=== PATIENT | male | born 1965 | race Two or more races ===

== ENCOUNTER 2018-10-24 15:32 | Emergency (ER) | payer MEDICARE ==
[~2018-10-24] VITALS: Ht 157.5 cm; Wt 95.3 kg
[2018-10-24 15:32] VITALS: BP 101/47
[2018-10-24] MEDS ORDERED: ASPIRIN81 MG ORAL (15:57)
[2018-10-24] MEDS ORDERED: GABAPENTIN300 MG ORAL (15:57)
[2018-10-24] MEDS ORDERED: BENADRYL25 MG ORAL (15:57)
[2018-10-24] MEDS ORDERED: METFORMIN HCL500 M1 ORAL (15:57)
[2018-10-24] MEDS ORDERED: NORCO 10-325 T1 EACH ORAL (15:57)
[2018-10-24] MEDS ORDERED: ACETAMINOP160 MG/54 ORAL (15:57)
[2018-10-24] MEDS ORDERED: XANAX0.5 MG ORAL (15:57)
[2018-10-24] MEDS ORDERED: ATORVASTATIN CA40 MG ORAL (15:57)
[2018-10-24] MEDS ORDERED: LORATADINE10 M1 PO (15:57)
[2018-10-24] MEDS ORDERED: LISINOPRIL5 MG ORAL (15:57)
[2018-10-24] MEDS ORDERED: ZOFRAN ODT8 MG ORAL (15:57)
[2018-10-24] MEDS ORDERED: SERTRALINE HCL25 MG ORAL (15:57)
[2018-10-24] MEDS ORDERED: MIRALAX17 G2 ORAL (15:57)
[2018-10-24] MEDS ORDERED: Ketorolac 30mg Inj IM ONE (16:15)
--- NOTE | 2018-10-24 17:48 | Emergency Room Report ---
History of Present Illness General Chief Complaint: Pain Source: EMS Present Illness HPI 53-year-old male with history of hypertension and depression, who just had a PICC line removed because of right arm, complains of pain in the right forearm as well as swelling in the left hand and numbness of left arm, has been taking [place] 10 with some improvement. Complains of pain radiation to the left shoulder, rating the pain 10 out of, denies tingling patient has full range of motion however is unable to feel right thumb. he denies chest pain, shortness of breath, palpitations, abdominal pain, dizziness. He reports he noticed a little bit of cyanosis and has a right thumb 2 days ago however nonexistent at this moment Allergies: Coded Allergies: IODINE (Verified Allergy, Unknown, 10/24/18) MEPERIDINE (Verified Allergy, Unknown, 10/24/18) PROMETHAZINE (Verified Allergy, Unknown, 10/24/18) Patient History Past Medical History: see triage record Past Surgical History: unable to obtain Pertinent Family History: none Immunizations: UTD Reviewed Nursing Documentation: PMH: Agreed; PSxH: Agreed Nursing Documentation-PMH Past Medical History: No History, Except For Hx Hypertension: Yes History Of Psychiatric Problem: Yes - ptsd, anxiety Review of Systems All Other Systems: negative except mentioned in HPI Physical Exam Vital Signs Date Time Temp Pulse Resp B/P (MAP) Pulse Ox O2 Delivery O2 Flow Rate FiO2 10/24/18 15:25 98.4 68 17 101/47 92 Room Air Sp02 EP Interpretation: reviewed, normal General Appearance: normal inspection, well appearing, no apparent distress, alert, GCS 15 Head: normocephalic, atraumatic Eyes: bilateral eye normal inspection, bilateral eye PERRL ENT: normal ENT inspection, normal pharynx Neck: normal inspection, supple Respiratory: normal inspection, normal breath sounds, no retraction, no wheezing Cardiovascular #1: normal inspection, no edema, no murmur, normal capillary refill Cardiovascular #2: 2+ radial (R), 2+ radial (L) Gastrointestinal: normal inspection, soft Rectal: deferred Genitourinary: deferred Musculoskeletal: back normal, digits/nails normal, gait/station normal, swelling - right hand Neurologic: normal inspection, alert, oriented x3, responsive Medical Decision Making PA Attestation all diagnosis and treatment plans were reviewed and discussed with supervising physician Dr. Gill Diagnostic Impression: Primary Impression: Edema of right forearm Additional Impression: Radial nerve palsy ER Course 53-year-old male with history of hypertension and depression, who just had a PICC line removed because of right arm, complains of pain in the right forearm as well as swelling in the left hand and numbness of left arm, has been taking [place] 10 with some improvement. Complains of pain radiation to the left shoulder, rating the pain 10 out of, denies tingling patient has full range of motion however is unable to feel right thumb. he denies chest pain, shortness of breath, palpitations, abdominal pain, dizziness. He reports he noticed a little bit of cyanosis and has a right thumb 2 days ago however nonexistent at this moment Ddx considered but are not limited to venous insufficiency, arterial insufficiency, edema post removal of PICC line Vital signs: are WNL, pt. is afebrile H&PE are most consistent with edema right forearm ORDERS: arterial and venous ultrasound of the right upper extremity, Toradol 30 g IM, naproxen 500mg ED INTERVENTIONS: Toradol 30 IM DISCHARGE: At this time pt. is stable for d/c to home. Will provide printed patient care instructions, and any necessary prescriptions. Care plan and follow up instructions have been discussed with the patient prior to discharge. K to take naproxen 500 mg twice a day make sure blood pressure is controlled do not take at the same time with norco CT/MRI/US Diagnostic Results CT/MRI/US Diagnostic Results : Imaging Test Ordered: venous and arterial US left Upper extremitity Impression US VENOUS RIGHT UPPER EXTREMITY: No evidence of deep venous thrombosis. Venous flow signal identified in the imaged internal jugular and subclavian veins. US ARTERIAL RIGHT UPPER EXTREMITY: Arterial flow signal identified throughout the right upper extremity. No evidence of any significant stenosis or major arterial occlusion. Last Vital Signs Date Time Temp Pulse Resp B/P (MAP) Pulse Ox O2 Delivery O2 Flow Rate FiO2 10/24/18 15:32 98.4 17 101/47 92 Room Air 10/24/18 15:25 68 Disposition: HOME, SELF-CARE Condition: Stable Scripts Naproxen* (NAPROXEN*) 500 Mg Tablet 500 MG ORAL TWICE A DAY, #30 TAB Prov: Sia Soliman 10/24/18 Patient Instructions: Edema, [id number], Radial Nerve Palsy Additional Instructions: follow with the primary care provider in specialist if pain continues at this time no arterial or venous insufficiency further assessment nerves may be done via MRI upon request a primary care provider Sai Soliman Oct 24, 2018 17:48
[2018-10-24] MEDS ORDERED: NAPROXEN500 M2 ORAL (17:58)
[2018-10-24 18:24] VITALS: BP 115/56
[2018-10-24 21:04] VITALS: BP 112/70
--- NOTE | 2018-10-25 09:24 | Diagnostic Imaging Report ---
Indication: Right upper extremities pain and swelling Technique: Grayscale duplex images of the right upper extremity veins Comparison: none Findings: No intraluminal thrombus is demonstrated. Normal compressibility. Normal phasic waveforms Impression: Negative for evidence of upper extremity venous thrombosis
--- NOTE | 2018-10-25 09:28 | Diagnostic Imaging Report ---
Indication: Right upper extremity pain Technique: Grayscale duplex images of the right extremity extremity arteries Comparison: none Findings: Grayscale and duplex images demonstrate no evidence of arterial stenosis. Equivocally biphasic Doppler waveforms at all levels, with sharp systolic peaks Impression: Negative for right upper extremity arterial insufficiency This agrees with the preliminary interpretation provided overnight by [facility] teleradiology service.
== END 2018-10-24 21:00 | disposition home or self-care (01) ==
LOC: EDBD 15:32 → EMR 17:48
DX: G56.31 Lesion of radial nerve, right upper limb (principal); R60.9 Edema, unspecified; M79.631 Pain in right forearm; I10 Essential (primary) hypertension; R20.0 Anesthesia of skin; F43.10 Post-traumatic stress disorder, unspecified; F41.8 Other specified anxiety disorders; Z91.048 Other nonmedicinal substance allergy status; Z88.8 Allergy status to other drugs, medicaments and biological substances
CPT/HCPCS: 93931; 93971; 96372; 99284; J1885